=== PATIENT | female | born 1985 | race Caucasian/White ===

== ENCOUNTER 2016-12-25 17:01 | Emergency (ER) | payer MEDICAID ==
[~2016-12-25] VITALS: Ht 154.9 cm; Wt 59.0 kg
--- NOTE | 2016-12-25 17:52 | NUR ---
Patient discharged to home in stable conditon. Written and verbal after care instructions given. Patient verbalizes understanding of instructions.
== END 2016-12-25 17:52 | disposition home or self-care (01) ==
LOC: ER 17:09
DX: S63.611A Unspecified sprain of left index finger, initial encounter (principal); W04.XXXA Fall while being carried or supported by other persons, initial encounter; Y93.89 Activity, other specified; Y99.8 Other external cause status; Y92.89 Other specified places as the place of occurrence of the external cause
CPT/HCPCS: 73140; 99284; A4663